=== PATIENT | male | born 1985 | race Caucasian/White ===

== ENCOUNTER 2018-11-18 13:36 | Emergency (ER) | payer MEDICAID ==
--- NOTE | 2018-11-18 15:03 | EDM.PDOC ---
ED HPI GENERAL MEDICAL PROBLEM - General Chief Complaint: ENT Problem Stated Complaint: PAIN IN BOTH EARS/BOIL ON HEAD Time Seen by Provider: 11/18/18 14:32 Source of Information: Reports: Patient History Limitations: Reports: No Limitations - History of Present Illness INITIAL COMMENTS - FREE TEXT/NARRATIVE: This patient comes in complaining of severe bilateral ear pain. Last night he was taking a alison pin and cleaning out his ears. He said he got a little bit of blood on the alison pin on the left side. He also complains of a boil to his posterior scalp. - Related Data Allergies Allergy/AdvReac Type Severity Reaction Status Date / Time No Known Allergies Allergy Verified 11/18/18 14:03 Home Meds: Home Meds Insulin Glarg,Human.Rec.Analog [Lantus Solostar] 40 unit SQ DAILY 10/06/13 [ History] Lisinopril 20 mg PO DAILY 10/06/13 [History] metFORMIN [Glucophage] 1,000 mg PO DAILY 10/06/13 [History] Propranolol [Inderal] 1 tab PO DAILY PRN 11/18/18 [History] SitaGLIPtin [Januvia] 1 tab PO DAILY 11/18/18 [History] buPROPion [buPROPion XL] 300 mg PO DAILY 11/18/18 [History] busPIRone HCl [Buspirone HCl] 1 tab PO TID 11/18/18 [History] lamoTRIgine [Lamotrigine] 1 tab PO DAILY 11/18/18 [History] Social & Family History - Tobacco Use Smoking Status *Q: Current Every Day Smoker Years of Tobacco use: 15 Packs/Tins Daily: 0.5 ED ROS ENT - Review of Systems Review Of Systems: ROS reveals no pertinent complaints other than HPI. ED EXAM, ENT - Physical Exam Exam: See Below Exam Limited By: No Limitations General Appearance: Alert, WD/WN, No Apparent Distress Ears: Other (Examination of the left ear showed that there seems to be some tenderness to the ear canal and the pinna. There may be some erythema to the canal I didn't get to see the tympanic membrane very well because of his discomfort. The right tympanic membrane appears to be a little bit reddened but the canal looks okay. He has a small area of folliculitis to the posterior scalp ) Course - Vital Signs Last Recorded V/S: Last Vital Signs Temp 36.7 C 11/18/18 14:14 Pulse 92 11/18/18 14:14 Resp 14 11/18/18 14:14 BP 160/99 H 11/18/18 14:14 Pulse Ox 98 11/18/18 14:14 Departure - Departure Time of Disposition: 15:02 Disposition: Home, Self-Care 01 Condition: Fair Clinical Impression: Otitis media, Otitis externa - Discharge Information Instructions: Ear Drops, Adult, [id number], Otitis Media, Adult, [id number] Referrals: PCP,None [Primary Care Provider] - Forms: ED Department Discharge Additional Instructions: Take amoxicillin 500 mg 3 times per day for one week. Use the Cortisporin otic suspension 3 times a day as directed. For pain use the Narco 5/325, 18 tablets, one or 2 every 4 hours. This medication can cause sedation and can cause addiction if abused. See your DrPooja if no better in 3 days
== END 2018-11-18 15:09 | disposition home or self-care (01) ==
LOC: JP.ED 13:36
DX: H60.93 Unspecified otitis externa, bilateral (principal); H66.93 Otitis media, unspecified, bilateral; F17.210 Nicotine dependence, cigarettes, uncomplicated; Z79.4 Long term (current) use of insulin; Z79.899 Other long term (current) drug therapy
CPT/HCPCS: 99283

== ENCOUNTER 2021-10-04 16:33 | Emergency (ER) | payer MEDICAID ==
--- NOTE | 2021-10-04 18:14 | EDM.PDOC ---
ED HPI GENERAL MEDICAL PROBLEM - General Chief Complaint: Wound Recheck Stated Complaint: BIT BY SPIDER Time Seen by Provider: 10/04/21 18:00 Source of Information: Reports: Patient, Family History Limitations: Reports: No Limitations - History of Present Illness INITIAL COMMENTS - FREE TEXT/NARRATIVE: 36-year-old male who was bit by a "brown recluse spider" 3 weeks ago on his right anterior jung. He had a oval black scab on his leg for several weeks, that recently pulled off but now he has a couple of surrounding swollen areas that are more tender. No fevers or chills. It is starting to drain. It has not been seen. Onset: Sudden (Symptoms started fairly suddenly after being bitten 3 weeks ago) Duration: Week(s): (3 weeks) Associated Symptoms: Reports: Other (Only other symptom is pain in the leg, no fevers or chills, no malaise) Right Lower Leg Pain Score (Numeric/FACES): 3 - Related Data Allergies Allergy/AdvReac Type Severity Reaction Status Date / Time No Known Allergies Allergy Verified 10/04/21 17:18 Home Meds: Home Meds NK [No Known Home Meds] 10/04/21 [History] Past Medical History Cardiovascular History: Reports: Hypertension Musculoskeletal History: Reports: Fracture Psychiatric History: Reports: Anxiety, Depression, PTSD Endocrine/Metabolic History: Reports: Diabetes, Type II Social & Family History - Tobacco Use Tobacco Use Status *Q: Heavy Tobacco User Years of Tobacco use: 25 Packs/Tins Daily: 0.5 - Caffeine Use Caffeine Use: Reports: Coffee - Recreational Drug Use Recreational Drug Use: No ED ROS GENERAL - Review of Systems Review Of Systems: See Below Constitutional: Denies: Fever, Chills, Malaise HEENT: Reports: No Symptoms Respiratory: Reports: No Symptoms Cardiovascular: Reports: No Symptoms GI/Abdominal: Reports: No Symptoms Neurological: Denies: Headache Psychiatric: Reports: No Symptoms ED EXAM, SKIN/RASH Exam: See Below Exam Limited By: No Limitations General Appearance: Alert, No Apparent Distress Head: Atraumatic Neck: Normal Inspection Respiratory/Chest: No Respiratory Distress Extremities: Other (Right anterior lower extremity has a 2-1/2 x 4 cm ulceration with bordering granulation tissue, however it is draining purulent material at the proximal aspect of the wound) Neurological: Alert, Oriented Skin: Other (Lesion on his right leg as described above above, there are 3 reddened and somewhat swollen areas proximal to the open lesion that expresses pus through the upper aspect of the lesion when pressure is applied. This was cultured) Course - Vital Signs Last Recorded V/S: Last Vital Signs Temp 97.6 F 10/04/21 17:16 Pulse 64 10/04/21 17:16 Resp 16 10/04/21 17:16 BP 176/107 H 10/04/21 17:16 Pulse Ox 100 10/04/21 17:16 - Orders/Labs/Meds Orders: Active Orders 24 hr Category Date Time Status CULTURE WOUND + SMEAR [RM] Stat Lab 10/04/21 18:09 Results - Re-Assessments/Exams Free Text/Narrative Re-Assessment/Exam: 10/04/21 18:13 The purulent material was expressed as much as possible, patient is going to wash his leg in warm sitz bath's and he will be started on Bactrim DS and Augmentin twice daily pending culture. If he is worsening despite the medications he could return anytime. Departure - Departure Time of Disposition: 18:47 Disposition: Home, Self-Care 01 Clinical Impression: Abscess of leg - Discharge Information Instructions: Skin Abscess Referrals: PCP,None [Primary Care Provider] - Forms: ED Department Discharge Care Plan Goals: Take antibiotics twice daily as directed and keep leg warm and clean and you should start improving fairly rapidly. Recheck anytime if worsening, we will call you if the culture indicates a change in medications are needed. Sepsis Event Note (ED) - Evaluation Sepsis Screening Result: No Definite Risk - Focused Exam Vital Signs: Vital Signs Temp Pulse Resp BP Pulse Ox 10/04/21 17:16 97.6 F 64 16 176/107 H 100 10/04/21 17:07 97.6 F 64 16 176/107 H 100 - My Orders Last 24 Hours: My Active Orders 10/04/21 18:09 CULTURE WOUND + SMEAR [RM] Stat - Assessment/Plan Last 24 Hours: My Active Orders 10/04/21 18:09 CULTURE WOUND + SMEAR [RM] Stat
== END 2021-10-04 18:47 | disposition home or self-care (01) ==
LOC: JP.ED 16:33
DX: L02.415 Cutaneous abscess of right lower limb (principal); I10 Essential (primary) hypertension; E11.9 Type 2 diabetes mellitus without complications; Z72.0 Tobacco use
CPT/HCPCS: 87070; 87077; 87205; 99283

== ENCOUNTER 2023-08-16 15:11 | Emergency (ER) | payer MEDICAID ==
[2023-08-16] MEDS ORDERED: Lactated Ringers 1,000 ML IV SCH (16:30)
[2023-08-16] MEDS ORDERED: Meropenem 1 GM in Sodium Chloride 0.9% 100 ML IV ONE (16:34)
[2023-08-16 16:51] LABS: BASOPHILS ABSOLUTE AUTO 0.07 K/uL (0.00-0.10); BASOPHILS PERCENT AUTO 0.5 % (0.1-1.3); EOSINOPHILS ABSOLUTE AUTO 0.09 K/uL (0.00-0.40); EOSINOPHILS PERCENT AUTO 0.6 % (0.0-5.4); HEMATOCRIT 45.5 % (38.4-49.7); HEMOGLOBIN 16.3 g/dL (12.9-16.9); IMMATURE GRAN ABSOLUTE AUTO 0.07 K/uL (0.00-0.23); IMMATURE GRAN PERCENT AUTO 0.5 % (0.0-0.7); LYMPHOCYTES PERCENT AUTO 11.9 % (11.4-47.7); MEAN CORPUSCULAR HGB CONC 35.8 g/dL (31.6-35.5); MEAN CORPUSCULAR VOLUME 83.8 fL (81.4-99.0); MONOCYTES ABSOLUTE AUTO 0.89 K/uL (0.20-0.90); MONOCYTES PERCENT AUTO 6.2 % (3.3-12.6); NEUTROPHILS ABSOLUTE AUTO 11.48 K/uL (1.0-7.6); NEUTROPHILS PERCENT AUTO 80.3 % (40.0-78.1); PLATELET COUNT,PLT 247 K/uL (130-375); RED BLOOD CELL COUNT 5.43 M/uL (4.14-5.76); WHITE BLOOD CELL COUNT,WBC 14.3 K/uL (3.2-11.0)
[2023-08-16] MEDS ORDERED: Vancomycin 1 GM SDV IV SCH (17:00)
[2023-08-16 17:14] LABS: ALANINE AMINOTRANSFERASE,ALT 27 U/L (12-78); ALBUMIN 3.7 g/dL (3.4-5.0); ALKALINE PHOSPHATASE 136 U/L (46-116); ANION GAP 17.6 mmol/L (5.0-14.0); ASPARTATE AMNIOTRANSFERASE,AST 18 U/L (15-37); BLOOD UREA NITROGEN,BUN 6 mg/dL (7-18); C-REACTIVE PROTEIN 6.41 mg/dL (0.0-0.3); CALCIUM 8.8 mg/dL (8.5-10.1); CARBON DIOXIDE,CO2 22 mmol/L (21-32); CHLORIDE,CL 96 mmol/L (100-108); CREATININE 0.7 mg/dL (0.8-1.3); EST CRCL DRUG DOSING (CG) 153.89 mL/min; ESTIMATED GFR 122 mL/min (>60); GLUCOSE RANDOM 287 mg/dL (74-106); POTASSIUM,K 3.6 mmol/L (3.6-5.2); PROTEIN TOTAL,TP 7.5 g/dL (6.4-8.2); SODIUM,NA 132 mmol/L (140-148)
[2023-08-16 17:17] LABS: LACTIC ACID 1.1 mmol/L (0.4-2.0)
[2023-08-16] MEDS ORDERED: Nicotine 21 MG/24 Hr Patch TRDERM ONE (18:16)
[2023-08-16] MEDS ORDERED: Acetaminophen 325 MG Tab PO ONE (18:16)
[2023-08-16] MEDS ORDERED: Nicotine Polacrilex 2 MG Gum CHEW PRN (18:16)
[2023-08-16] MEDS ORDERED: LORazepam 2 MG/ML SDV IVPUSH ONE ×2 (19:31→19:54)
[2023-08-16] MEDS ORDERED: Insulin Lispro 100 Units/ML 3 ML Vial SUBCUT ONE (19:38)
[2023-08-16] MEDS ORDERED: Glucagon,Human Recombinant 1 MG Vial IM PRN (19:38)
[2023-08-16] MEDS ORDERED: 50% Dextrose in Water 50 ML Syringe IVPUSH PRN (19:38)
[2023-08-16] MEDS ORDERED: Sodium Chloride 0.9% 1,000 ML IV SCH (19:45)
[2023-08-16] MEDS ORDERED: Lisinopril 10 MG Tab PO ONE (19:47)
== END 2023-08-16 23:36 ==
LOC: JP.ED 15:11
DX: L03.211 Cellulitis of face (principal); I10 Essential (primary) hypertension; E11.40 Type 2 diabetes mellitus with diabetic neuropathy, unspecified; F17.210 Nicotine dependence, cigarettes, uncomplicated; Z79.899 Other long term (current) drug therapy
CPT/HCPCS: 36415; 70486; 80053; 83605; 84145; 85025; 86140; 87040; 96361; 96365; 96366; 96367; 96375; 99284; 99285-25; A9270-GY; J1815-GY; J2060; J2185; J3370; J3490; J7030; J7050; J7120; U0002